=== PATIENT | female | born 1995 | race Two or more races ===

== ENCOUNTER 2022-08-06 03:12 | Emergency (ER) | payer MEDICAID, OTHER ==
[~2022-08-06] VITALS: Ht 160 cm; Wt 79.4 kg
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
--- NOTE | 2022-08-06 04:19 | NUR ---
ON HOLD WITH [employer] DISPATCH
[2022-08-06] MEDS ORDERED: IBUPROFEN 400 MG TABLET ONE (04:20)
--- NOTE | 2022-08-06 04:25 | NUR ---
[facility] BREAKER OFF [address] SENDING UNIT
[2022-08-06] MEDS ORDERED: IBUPROFEN 400 MG TABLET PO ONE (04:30)
--- NOTE | 2022-08-06 04:30 | NUR ---
[facility]
--- NOTE | 2022-08-06 05:08 | NUR ---
[facility] at bedside for splint application
--- NOTE | 2022-08-06 05:17 | NUR ---
Patient discharged to home in stable condition. Written and verbal after care instructions given. Patient verbalizes understanding of instruction.
[2022-08-06 05:47] VITALS: BP 114/63
== END 2022-08-06 05:20 | disposition home or self-care (01) ==
LOC: ER 03:14
DX: S60.042A Contusion of left ring finger without damage to nail, initial encounter (principal); Y08.89XA Assault by other specified means, initial encounter; Y93.89 Activity, other specified; Y92.89 Other specified places as the place of occurrence of the external cause; Y99.8 Other external cause status
CPT/HCPCS: 73140-TC